=== PATIENT | female | born 1980 | race Hispanic/Latino ===

== ENCOUNTER 2024-07-17 17:45 | Emergency (ER) | payer BC ==
[~2024-07-17] VITALS: Ht 160 cm; Wt 83.0 kg
[2024-07-17] MEDS ORDERED: IOPAMIDOL 370 MG/ML 100 ML INFUS..BTL INJ ONE (17:57)
[2024-07-17 21:24] VITALS: PULSE 76; RESP 18; TEMP 97.3
[2024-07-17 21:25] VITALS: BP 135/90; O2SAT 97
== END 2024-07-17 21:28 | disposition home or self-care (01) ==
LOC: FSED 17:50
DX: R10.9 Unspecified abdominal pain (principal); R11.0 Nausea; M54.50 Low back pain, unspecified
CPT/HCPCS: 74177; 80053; 81003; 81025; 85025; 99284; Q9967